=== PATIENT | male | born 1970 | race Caucasian/White ===

== ENCOUNTER → 2021-08-10 14:41 | Outpatient (CLI) | payer BC, SELFPAY ==
--- NOTE | ~2021-08-10 | XR_ITS ---
EXAM: XR lumbar spine 2-3V HISTORY: M54.9 - Dorsalgia, unspecified . COMPARISON: None available. FINDINGS: 5 nonrib-bearing lumbar-type vertebral bodies. Pedicles intact. 2 mm retrolisthesis of L3 on L4, with mild disc space narrowing and bridging anterior osteophyte formation. Vertebral body heig hts preserved. Mild disc space narrowing at L5-S1. Lower lumbar facet sclerosis. Surgical suture mat erial projects over the lower abdomen IMPRESSION: Minimal, grade 1 retrolisthesis of L3 on L4. Mild degenerative disc disease at L3-4 and L 5-S1. Lower lumbar facet arthropathy. Reviewed, dictated and finalized at location K. IMPRESSION: Minimal, grade 1 retrolisthesis of L3 on L4. Mild degenerative disc disease at L3-4 and L5-S1. Lower lumbar facet arthropathy.
== END ==
PROVIDERS: PCP Internal Medicine; Visit Provider Internal Medicine
DX: M47.817 Spondylosis without myelopathy or radiculopathy, lumbosacral region (principal)
CPT/HCPCS: 72100

== ENCOUNTER 2021-08-22 08:28 | Outpatient (CLI) | payer BC, SELFPAY ==
--- NOTE | ~2021-08-22 | MR_ITS ---
EXAMINATION: MR lumbar spine wo con DATE: 08/22/2021 09:15 INDICATION: Dorsalgia, unspecified. TECHNIQUE: Magnetic resonance imaging (MRI) of the lumbar spine was performed without intravenous con trast. Sequences included sagittal T2-weighted FSE, sagittal T2-weighted FS FSE, sagittal T1-weighted FSE, and axial T2-weighted FSE. COMPARISON: Lumbar spine radiographs 08/10/2021 FINDINGS: There is 5 degrees levocurvature of lumbar spine. There is 3 mm retrolisthesis of L3 on L4. Vertebral body heights are normal. There is mildly decreased disc height at L3-L4 and L5-S1. The dis kya spinal cord signal intensity is normal. The conus medullaris is at T12-L1. The following disc lev els are specifically discussed: L1-L2: The disc does not extend beyond the endplate margin. There is mild bilateral facet joint osteo arthritis. There is no neural foraminal stenosis. There is no central canal stenosis. L2-L3: The disc does not extend beyond the endplate margin. There is moderate bilateral facet joint o steoarthritis. There is no neural foraminal stenosis. There is no central canal stenosis. L3-L4: The disc is bulging. There is mild bilateral facet joint osteoarthritis. There is mild bilater al neural foraminal stenosis. There is mild central canal stenosis. L4-L5: The disc is bulging. There is mild bilateral facet joint osteoarthritis. There is moderate rig ht and mild left neural foraminal stenosis. There is no central canal stenosis. L5-S1: The disc is bulging and has an annular fissure. There is severe right and mild left facet join t osteoarthritis. There is mild bilateral neural foraminal stenosis. There is mild central canal sten osis. IMPRESSION: 1. Mild lumbar spondylosis. Reviewed, dictated and finalized at location A. IMPRESSION: 1. Mild lumbar spondylosis.
== END 2021-08-22 08:29 | disposition home or self-care (01) ==
PROVIDERS: PCP Internal Medicine; Visit Provider Internal Medicine
DX: M54.9 Dorsalgia, unspecified (principal); M47.816 Spondylosis without myelopathy or radiculopathy, lumbar region
CPT/HCPCS: 72148

== ENCOUNTER 2022-06-05 19:33 | Emergency (ER) | payer BC, SELFPAY ==
[2022-06-05] VITALS (16 sets, daily range): BP systolic 137–156; BP diastolic 84–98; PULSE 85–101; RESP 10–23; TEMP 36.8; O2SAT 90–99
--- NOTE | ~2022-06-05 | CT_ITS ---
Noncontrast CT scan of the cervical spine Technique: Multiple contiguous axial [address] images of the cervical spine were obtained and rec onstructed in 2D sagittal and coronal planes on the acquisition scanner. Dose reduction technique was used on this scan by utilizing automated exposure control, adjustment of the mA and/or kV according to patient size. Clinical History: Pain Findings: No fractures or dislocations. Mild disc osteophyte complexes are present at C5-C6 and C6-C 7. The intervertebral disc spaces are preserved. No prevertebral soft tissue swelling. Impression: No fracture or subluxation of the cervical spine. Reviewed, dictated and finalized at location M. NG FELLER Impression: No fracture or subluxation of the cervical spine.
--- NOTE | ~2022-06-05 | CT_ITS ---
Non-contrast Head CT History: Head trauma Technique: Axial non-contrast imaging of the brain was performed. Dose reduction technique was used on this scan by utilizing automated exposure control and iterative reconstruction technique. The dose -length product (DLP) was 605.33 mGy-cm. Findings: There is no evidence of intracranial hemorrhage, mass lesion, or acute infarct. Brain par enchyma appears normal. The ventricles and subarachnoid spaces are normal in size. The calvarium ap pears normal. The visualized paranasal sinuses and mastoid air cells are clear. There is soft tissue swelling and/or laceration at the left parietal scalp. Impression: No intracranial abnormality seen. Soft tissue swelling and/or laceration at the left parietal scalp. Reviewed, dictated and finalized at [facility]. LY ASSISTANT Impression: No intracranial abnormality seen. Soft tissue swelling and/or laceration at the left parietal scalp.
[2022-06-05] MEDS: TETANUS,DIPHTHERIA,AC PERTUSSIS ADULT (0.5 ML) BOOSTRIX IM (20:13)
--- NOTE | 2022-06-05 20:35 | ED.GENADULT ---
HPI - General Adult General Chief complaint: Fall Stated complaint: fall, head trauma Time Seen by Provider: 06/05/22 19:38 History of Present Illness HPI narrative: Patient 52-year-old gentleman who presents the emergency department with chief complaint of head injury. Patient reports that he was drinking with some family and friends today and had several IPAs and then several mixed drinks afterwards the patient got home laid down and then got up to go to the bathroom and fell and struck his head. Patient states he does not necessarily remember the situation but does report that he has a little bit of a headache now. Patient reports that he is unsure of his last tetanus shot Related Data Home Medications Medication Instructions Recorded Confirmed fexofenadine-pseudoephedrine ER 1 tablet PO DAILY 04/12/19 09/16/21 180 mg-240 mg tablet,ext.release 24 hr (Paola-D 24 Hour) Allergies Allergy/AdvReac Type Severity Reaction Status Date / Time No Known Allergies Allergy Verified 09/16/21 14:17 Review of Systems Review of Systems: A 10 system review of systems was completed on the patient and is negative except for what is stated in the HPI. Nursing and ancillary documentation was reviewed. [facility] Past Medical History Medical History (Updated 06/05/22 @ 22:35 by Jordi Duran MD) History of intestine removal Family History Family History Father Patient's father is in good health Sibling Patient's brother is in good health Mother Patient's mother is Social History Social History Smoking status: Former smoker Second hand tobacco smoke exposure: No Alcohol intake: current Exam Narrative: GENERAL: Well-appearing, well-nourished, and in no acute distress. HEAD: Normocephalic, there is a wound present on the left scalp. EYES: PERRLA and EOMI. ENT: Nares clear, no rhinorrhea or epistaxis. Mucous membranes moist. NECK: Supple. CHEST: Clear to auscultation. No respiratory distress. HEART: Regular rate and rhythm. No murmur heard. Normal peripheral pulses. ABDOMEN: Soft, nontender, nondistended, normal active bowel sounds. EXTREMITIES: Normal range of motion. No edema. SKIN: Warm, dry, no rash. NEURO: No focal deficits. Alert and oriented x3. PSYCH: Normal mood and affect. Course Vital Signs Vital signs: Vital Signs Temperature 36.8 C 06/05/22 19:36 Pulse Rate 91 06/05/22 19:36 Respiratory Rate 16 06/05/22 19:36 Blood Pressure 156/87 H 06/05/22 19:36 Pulse Oximetry 99 06/05/22 19:36 Oxygen Delivery Room Air 06/05/22 19:36 Temperature 36.8 C 06/05/22 19:36 Pulse Rate 95 06/05/22 21:16 Respiratory Rate 13 06/05/22 21:16 Blood Pressure 140/84 06/05/22 21:15 Pulse Oximetry 96 06/05/22 21:16 Oxygen Delivery Room Air 06/05/22 19:36 Procedures Laceration Laceration 1: Date: 06/05/22 Time: 22:32 Site: scalp Side (If applicable): left Size (cm): 3 Description: linear Depth: simple, single layer Local Anesthetic: none Pre-repair: wound explored, irrigated and irrigated extensively ====== Skin Level ====== Skin layer closed with: pily Size (cm): other (skin pily) Number of sutures: 4 Technique: other (skin pily) ====== Subcutaneous Layer ====== ====== Muscle Layer ====== ====== Tendon Layer ====== Medical Decision Making MDM Narrative Medical decision making narrative: Differential diagnosis includes skull fracture, subarachnoid, subdural, cervical spine fracture, alcohol abuse CT head and CT C-spine were obtained due to the patient being unable to remember the events and alcohol at the present in the patient's system Patient's wound was closed. Patient's tetanus st
== END 2022-06-05 22:58 | disposition home or self-care (01) ==
PROVIDERS: Emergency Provider Emergency Medicine; PCP Internal Medicine
DX: S01.01XA Laceration without foreign body of scalp, initial encounter (principal); W01.0XXA Fall on same level from slipping, tripping and stumbling without subsequent striking against object, initial encounter; Z23 Encounter for immunization
CPT/HCPCS: 12032; 70450; 72125; 90471; 90715; 99284

== ENCOUNTER 2023-08-12 09:47 | Outpatient (CLI) | payer BC, SELFPAY ==
--- NOTE | ~2023-08-12 | XR_ITS ---
Left elbow Technique: AP and lateral views were obtained. Clinical History: Pain Findings: No acute fracture or dislocation is seen. Osseous alignment is anatomic. Joint spaces are p reserved. There is no displacement of the fat pads, and soft tissues are unremarkable. Impression: Unremarkable radiographs. Reviewed, dictated and finalized at location . Impression: Unremarkable radiographs.
== END 2023-08-12 09:48 | disposition home or self-care (01) ==
PROVIDERS: PCP Internal Medicine; Visit Provider Physician Assistant
DX: M25.522 Pain in left elbow (principal)
CPT/HCPCS: 73070

== ENCOUNTER 2024-01-20 07:01 | Outpatient (CLI) | payer BC, SELFPAY ==
--- NOTE | ~2024-01-20 | MR_ITS ---
EXAMINATION: MR lumbar spine wo con DATE: 01/20/2024 07:33 INDICATION: Acute lumbar radiculopathy. TECHNIQUE: Magnetic resonance imaging (MRI) of the lumbar spine was performed without intravenous con trast. Sequences included sagittal T2-weighted FSE, sagittal T2-weighted FS FSE, sagittal T1-weighted FSE, and axial T2-weighted FSE. COMPARISON: Lumbar spine MRI 08/22/2021 FINDINGS: There is 3 degrees levocurvature of lumbar spine. Vertebral body heights are normal. There is mildly decreased disc height at L3-L4 and L5-S1. The distal spinal cord signal intensity is normal . The conus medullaris is at T12. The following disc levels are specifically discussed: L1-L2: The disc does not extend beyond the endplate margin. There is mild bilateral facet joint osteo arthritis. There is no neural foraminal stenosis. There is no central canal stenosis. L2-L3: The disc does not extend beyond the endplate margin. There is mild bilateral facet joint osteo arthritis. There is no neural foraminal stenosis. There is no central canal stenosis. L3-L4: The disc is bulging. There is mild bilateral facet joint osteoarthritis. There is mild bilater al neural foraminal stenosis. There is no central canal stenosis. L4-L5: The disc is bulging with superimposed right foraminal zone extrusion. There is mild bilateral facet joint osteoarthritis. There is moderate right and mild left neural foraminal stenosis. There is mild central canal stenosis. L5-S1: The disc is bulging with superimposed right central extrusion. There is severe right and moder ate left facet joint osteoarthritis. There is mild bilateral neural foraminal stenosis. There is mild central canal stenosis. There is moderate stenosis of right lateral recess. IMPRESSION: 1. Moderate lumbar spondylosis, worsened from 08/22/2021. Reviewed, dictated and finalized at location A.
== END 2024-01-20 07:02 | disposition home or self-care (01) ==
PROVIDERS: PCP Physician Assistant; Visit Provider Physician Assistant
DX: M47.816 Spondylosis without myelopathy or radiculopathy, lumbar region (principal)
CPT/HCPCS: 72148

== ENCOUNTER 2024-04-17 13:03 | Emergency (ER) | payer BC, SELFPAY ==
[2024-04-17 13:20] VITALS: BP 136/89; PULSE 73; RESP 16; TEMP 36.5; O2SAT 99
--- NOTE | 2024-04-17 13:27 | ED.EAR ---
HPI - Ear Problem General Chief complaint: Ear Stated complaint: EAR CLOGGED Source: patient Mode of arrival: ambulatory Limitations: no limitations History of Present Illness HPI Narrative: 54 y/o male presented for c/o left ear is clogged for several days. Endorses drainage from the ear, starting to have pain, and occasionally feeling off balance. Denies tinnitus, dizziness, n/v/d/f/c. Complaint: ear pain Related Data Allergies Allergy/AdvReac Type Severity Reaction Status Date / Time No Known Allergies Allergy Verified 03/16/24 11:12 Review of Systems Review of Systems: CONSTITUTIONAL: Denies malaise, chills, or fever. EYES: Denies visual changes, redness, or discharge. ENT: Denies rhinorrhea, congestion, sinus pain, and sore throat. Reports ear clogged CARDIOVASCULAR: Denies chest pain, palpitations, or edema. RESPIRATORY: Denies cough or dyspnea. GASTROINTESTINAL: Denies nausea, vomiting, diarrhea SKIN: Denies rash NEUROLOGIC: Denies headache. All systems reviewed & are unremarkable except as noted in HPI and below PMFSH Past Medical History Medical History Lumbar disc herniation History of intestine removal Family History Family History Father Patient's father is in good health Sibling Patient's brother is in good health Mother Patient's mother is Social History Social History Smoking status: Former smoker Second hand tobacco smoke exposure: No Alcohol intake: current Substance use: unknown Lack of Transportation: No Lack of Food: Never True Current Housing: I Have Housing Concerned About Future Housing: No Difficulty Paying Gas/Electric Bills: No Difficulty Paying for Meds: No Currently Unemployed: No Education: Decline to Answer Difficulty w/ Childcare or Family Care: No Comments At time of signature, agree with nursing past medical, surgical, social and family history. There is no relevant family history pertinent to the presenting complaint Exam Narrative: GENERAL: Well-appearing EYES: PERRLA, conjunctivae clear ENT: Nares clear. Mucous membranes moist. Right TM pearly shepard with dull light reflex;Left canal swelling with purulent drainage, unable to fully visualize TM. no tragal tenderness. Oropharynx not erythematous without lesions. Tonsils not enlarged and without exudate, no drooling, no hoarseness, no trismus, uvula midline. NECK: Supple. No lymphadenopathy CHEST: Clear to auscultation, breath sounds equal. HEART: Regular rate and rhythm. SKIN: Warm, dry, no rash. NEURO: Alert and oriented x3. PSYCH: Normal mood and affect Course Course Emergency Course: Patient is aware of diagnosis, understands and agrees to treatment plan. Anticipatory guidance given. Patient agrees to follow-up as directed and is aware of reasons to seek care at the emergency department. Portions of this record may have been created with voice recognition software Level of Care: Express Care Visit Vital Signs Vital signs: Vital Signs Temperature 97.7 F 04/17/24 13:20 Pulse Rate 73 04/17/24 13:20 Respiratory Rate 16 04/17/24 13:20 Blood Pressure 136/89 04/17/24 13:20 Pulse Oximetry 99 04/17/24 13:20 Temperature 97.7 F 04/17/24 13:20 Pulse Rate 73 04/17/24 13:20 Respiratory Rate 16 04/17/24 13:20 Blood Pressure 136/89 04/17/24 13:20 Pulse Oximetry 99 04/17/24 13:20 Reviewed Medical Decision Making MDM Narrative Medical decision making narrative: Discussed physical exam findings c/w OE. Advised supportive measures and signs/symptoms to go to the ER. Patient is appropriate for outpatient treatment and follow-up. Differential Diagnosis Differential Diagnosis: Coronavirus, strep pharyngitis, allergic rhinitis, upper respiratory tract infection, sinusitis, rhinosinusitis, nasopharyngitis, viral pharyngitis, otitis media, otitis externa, eustachian tube dysfunction, foreign body, cerumen impaction. Vital Signs Vital Signs: Vital Signs Temperature 97.7 F 04/17/24 13:20 Pulse Rate 73 04/17/24 13:20 Respiratory Rate 16 04/17/24 13:20 Blood Pressure 136/89 04/17/24 13:20 Pulse Oximetry 99 04/17/24 13:20 Temperature 97.7 F 04/17/24 13:20 Pulse Rate 73 04/17/24 13:20 Respiratory Rate 16 04/17/24 13:20 Blood Pressure 136/89 04/17/24 13:20 Pulse Oximetry 99 04/17/24 13:20 Discharge Plan Discharge Clinical Impression: Otitis externa Patient Disposition: Home, Self-Care Condition: Stable Instructions: Antibiotic Form, Swimmer's Ear (ED), Ear Infection (ED) Additional Instructions: Swimmer's ear is an infection in the outer ear canal, which runs from your eardrum to the outside of your head. It's often caused by water that remains in your ear, creating a moist environment that encourages the growth of bacteria. Take antibiotic drops as directed. Tylenol and ibuprofen every 8 hours as needed to reduce fever, pain Avoid water or anything into the ear for one week Follow up with your personal physician for further evaluation and treatment within 3-5days. If your symptoms persist, change or worsen significantly, go to the emergency department for further evaluation. Patient Language: Nepali Prescriptions: New amoxicillin-pot clavulanate 875-125 mg tablet 1 tablet PO Q12H 7 Days Qty: 14 0RF ciprofloxacin-dexamethasone 0.3-0.1 % drops,suspension 4 drp LEFT EAR Q12H 7 Days Qty: 7.5 0RF Follow-up/Referrals: UNKNOWN,DOCTOR [Primary Care Provider] - Time of Disposition: 13:35
== END 2024-04-17 13:43 | disposition home or self-care (01) ==
PROVIDERS: Emergency Provider Nurse Practitioner Family
DX: H60.92 Unspecified otitis externa, left ear (principal); Z87.891 Personal history of nicotine dependence
CPT/HCPCS: 99213; G0463

== ENCOUNTER 2024-05-07 08:35 | Outpatient (CLI) | payer BC, SELFPAY ==
--- OUTSIDE RECORDS SUMMARY | 2024-05-07 08:54 | XMS_ITS | Encounter Summary ---
Author Organization [facility] Address 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
--- OUTSIDE RECORDS SUMMARY | 2024-05-07 08:54 | XMS_ITS | Clinical Summary ---
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 Gender Identity Not on file Sexual Orientation Not on file Plan of Treatment Health Maintenance Due Date Last Done Comments DTAP/TDAP/TD VACCINES (1 - Tdap) 02/10/1988 HEPATITIS B VACCINES (1 of 3 - 19+ 3-dose series) 02/10/1988 COLORECTAL SCREENING 2014 Colorectal Cancer Screening 2014 FIT-DNA Q 3 years 2014 FIT/FOBT Q 1 year 2014 Flex Sig/CT Colonography Q 5 years 2014 ZOSTER VACCINE (1 of 2) 2019 INFLUENZA VACCINE (#1) 2023 PNEUMOCOCCAL VACCINE 0-64 YEARS Aged Out No longer eligible based on patient's age to complete this topic Care Teams Cad Designer Relationship Specialty Start Date End Date Rhys Flores DO * PCP - General 12/16/03
--- OUTSIDE RECORDS SUMMARY | 2024-05-07 08:54 | XMS_ITS | Continuity of Care Document ---
Author Organization [facility] Address [address] [place] [address] Phone Care Team Providers Care Bill Of Materials Clerk Name Role Phone [facility] Unavailable Unavail able Procedures Procedure Date Vision Svcs Frames Purchases SV Poly Carb Sph [place] To +/- 4 009 Tax - Medical Eye Exam, New Patient Refraction Advance Directives Directive Yes / No Effective Date File Name No Information Encounters Encounter Description Practice Location Reason(s) For Visit Diagnoses Date Provider Providers Copied on Encounter Formerly [facility], [address] [place] [address] [address], [place], [place], [id number], [place] tel:[phone] [facility] No Information [address] [facility]. [address] [facility], [address], [place], [place], [id number], [place]. tel:[phone] Referring Provider: Tiago roque, [address] [place] [address] [address], [place], [address]. tel:[phone] [facility], [address] [place] [address] [address], [place], [place], [id number], [place] tel:[phone] [facility] No Information [address]. [address] [place] [address], [place], [address], [place]. tel:[phone] Family History Family Member Type Diagnosis Age At Onset No Information Payers Payer name Insurance type Covered green party ID Authoriza tion(s) No Information Social History Type Description Quantity Date Captured Comments Sex Male Smoking Status No Information Chief Complaint And Reason For Visit No Information Reason For Referral Reason For Referral No Information History Of Present Illness Encounter Date Complaint History Of Prese nt Illness No Information Functional Status Date Functional Assessmen t No Information Instructions Date Instruction Additional Infor mation No Information Assessments Type Assessment Date No Information Patient Care Teams Name Effective Dates (start - stop) Status Members No Information
--- OUTSIDE RECORDS SUMMARY | 2024-05-07 08:54 | XMS_ITS | Encounter Summary ---
Author Organization [facility] Address [address] [place] [address] Care Team Providers Care Computer Instructor Name Role Phone Rhys Flores DO Primary Care Provider [phone] Encounter Details Date Type Department Care Team (Late st Contact Info) Description 10/09/[address] 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
--- OUTSIDE RECORDS SUMMARY | 2024-05-07 08:54 | XMS_ITS | Encounter Summary ---
Author Organization [facility] Address [address] [place] [address] Care Team Providers Care Industry Consultant Name Role Phone Rhys Flores DO Primary Care Provider [phone] Encounter Details Date Type Department Care Team (Late st Contact Info) Description 11/14/[address] 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
--- OUTSIDE RECORDS SUMMARY | 2024-05-07 08:54 | XMS_ITS | Encounter Summary ---
Author Organization [facility] Address [address] [facility] [place] [address] Care Team Providers Care Return Clerk Name Role Phone Unavailable Primary Care Provider Unavailabl e Encounter Details Date Type Department Care Team (Late st Contact Info) Description 07/30/[address] [facility] DermPath Lab [address] [facility], [place] [id number] Ny Kumar DO [address] [facility] [address] [place] [address] Social History Tobacco Use Types Packs/Day Years Used Date Smoking Tobacco: Never Assessed Sex and Gender Information Value Date Recorded Sex Assigned at Not on file Gender Identity Not on file Sexual Orientation Not on file documented as of this encounter Plan of Treatment Not on file documented as of this encounter Procedures Procedure Name Priority Date/Time Associated Diagnosis Comments DERMATOPATHOLOGY Routine 07/30/2019 12:0 0 AM CDT documented in this encounter Results * DERMATOPATHOLOGY (07/30/2019 12:00 AM CDT) Case Report Dermatopathology Report Case: [id number] Authorizing Provider: Ny Kumar DO Collected: 07/30/2019 12:00 AM Ordering Location: [facility] DermPath Lab Received: 07/30/2019 10:39 AM Pathologist: Jessi Wilson MD Specimen: Skin, mid upper back 0 4:23 PM CDT DERMATOPATHOLOGY LABORATORY Final Diagnosis Specimen A. SKIN, mid upper back: ACTINIC KERATOSIS, PIGMENTED (L57.0) (see microscopic description) 0 4:23 PM CDT DERMATOPATHOLOGY LABORATORY Clinical History Lentigo R/O atypia, irregular border, irregular color. 0 4:23 PM CDT DERMATOPATHOLOGY LABORATORY Gross Description Specimen A: Received is one formalin filled container labeled with the patient's name and designated mid upper back. The specimen consists of a shave measuring [id number]. Jar 0. 0 4:23 PM CDT DERMATOPATHOLOGY LABORATORY Microscopic Description Specimen A. SKIN, mid upper back: There is alternating orthokeratosis and parakeratosis. Along the undersurface of the epidermis, there are buds of atypical keratinocytes in a disorderly arrangement. There is prominent pigmentation in some of the keratinocytes, and an immunostain for SOX-10 highlights a slightly increased number of melanocytes within the lesion. 0 4:23 PM CDT DERMATOPATHOLOGY LABORATORY Disclaimer An external and internal positive and negative controls are appropriate for the histochemical, immunohistochemical and immunofluorescence stain(s) in this case (if any), except where stated explicitly. The performance characteristics of the stain(s) cited in this report were developed and its performance characteristic determined by the Dermatopathology Laboratory at [facility], directed by Dr. Samy Coy. These tests need not be, and therefore are not, approved by the [place] Food and Drug Administration. The tests are used for clinical purposes. Billing Codes Specimen Charges Stain Charges 25744 1 06344 1 0 4:23 PM CDT DERMATOPATHOLOGY LABORATORY Embedded Images 0 4:23 PM CDT DERMATOPATHOLOGY LABORATORY Pathology/Cytolog y TISSUE SPECIMEN FROM SKIN / Unknown 07/30/2019 07/30/2019 10:39 AM CDT Ny Kumar DO LAB - PATHOLOGY/C YTOLOGY ORDERABLES DERMATOPATHOLOGY LABORATORY [facility] - Department of Dermatology [address] [place] [address], 5th [place] [address], [facility] [phone] documented in this encounter Visit Diagnoses Not on filedocumented in this encounter
--- OUTSIDE RECORDS SUMMARY | 2024-05-07 08:54 | XMS_ITS | Encounter Summary ---
Author Organization [facility] Address 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
--- OUTSIDE RECORDS SUMMARY | 2024-05-07 08:54 | XMS_ITS | Clinical Summary ---
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 Gender Identity Not on file Sexual Orientation Not on file Plan of Treatment Health Maintenance Due Date Last Done Comments Colorectal Cancer Screening Colonoscopy (10 Years) 1970 Annual Physical 02/10/1972 Hepatitis C 1987 DTaP, Tdap and Td Vaccines ( 1 - Tdap) 02/10/1988 Hepatitis B Vaccines (1 of 3 - 19+ 3-dose series) 02/10/1988 Zoster Vaccines (1 of 2) 2019 COVID-19 Vaccine (2023-2 5 season) 2023 Influenza Adult (#1) 2023 Meningococcal B Vaccine Aged Out No l onger eligible based on patient's age to complete this topic Meningococcal Vaccine Aged Out No madie dennise eligible based on patient's age to complete this topic Pneumococcal Vaccine: Pediat rics (0 to 5 Years) and At-Risk Patients (6 to 64 Years) Aged Out No longer eligible b ased on patient's age to complete this topic RSV Immunizations Under 20 Months Aged Out No longer eligible based on patient's age to complete this topic
--- OUTSIDE RECORDS SUMMARY | 2024-05-07 08:54 | XMS_ITS | Referral Summary ---
Author Organization [facility] Address [address] [place] [address] Care Team Providers Care Developer Designer Name Role Phone Unavailable Primary Care Provider Unavailabl e Source Comments [facility],non-owned Affiliates and Associated Physician Practices is amultiple site organization consisting of ambulatory clinics and hospital sitesin [place], [place], [place] and [place]. This disclosure is being madepursuant to the Care Everywhere program and may not contain all information available regarding this patient. Last updated 17.[facility] Authorly Social History Tobacco Use Types Packs/Day Years Used Date Smoking Tobacco: Never Assessed Sex and Gender Information Value Date Recorded Sex Assigned at Not on file Gender Identity Not on file Sexual Orientation Not on file Plan of Treatment Not on file
--- OUTSIDE RECORDS SUMMARY | 2024-05-07 08:54 | XMS_ITS | Clinical Summary ---
Author Organization [facility] Address [address] [place] [address] Care Team Providers Care Preschool Assistant Teacher Name Role Phone Unavailable Primary Care Provider Unavailabl e Source Comments [facility],non-owned Affiliates and Associated Physician Practices is amultiple site organization consisting of ambulatory clinics and hospital sitesin [place], [place], [place] and [place]. This disclosure is being madepursuant to the Care Everywhere program and may not contain all information available regarding this patient. Last updated 17.[facility] Social History Tobacco Use Types Packs/Day Years Used Date Smoking Tobacco: Never Assessed Sex and Gender Information Value Date Recorded Sex Assigned at Not on file Gender Identity Not on file Sexual Orientation Not on file Plan of Treatment Health Maintenance Due Date Last Done Comments COLOGUARD (AGES 45-75) - COL ON CA SCREENING 1970 COLON MONITORING 1969 COLONOSCOPY - COLON CA SCREENING 1969 CT COLONOGRAPHY - COLON CA SCREENING 1970 Colorectal Cancer Screening 1970 FIT - COLON CA SCREENING 1969 FLEX SIG - COLON CA SCREENING 1970 LIPID TESTING 1970 HIV SCREENING 02/10/1984 HEPATITIS C SCREENING 02/05/1987 DTAP/TDAP/TD VACCINES (1 - Tdap) 02/10/1988 HEPATITIS B VACCINE (1 of 3 - 19+ 3-dose series) 02/10/1988 PNEUMOCOCCAL VACCINE 50+ (1 of 1 - PCV) 2019 ZOSTER VACCINE (1 of 2) 2019 COVID-19 VACCINE (2023-2 5 season) 2023 INFLUENZA VACCINE (#1) 2023 DEPRESSION SCREENING 03/28/2024 HIB VACCINE Aged Out No longer eligi ble based on patient's age to complete this topic HPV VACCINE Aged Out No longer eligi ble based on patient's age to complete this topic MENINGOCOCCAL (Group B) VACCINE Aged Out No longer eligible based on patient's age to complete this topic MENINGOCOCCAL VACCINE Aged Out No madie dennise eligible based on patient's age to complete this topic PNEUMOCOCCAL VACCINE Aged Out No long er eligible based on patient's age to complete this topic
--- OUTSIDE RECORDS SUMMARY | 2024-05-07 08:54 | XMS_ITS | Encounter Summary ---
Author Organization [facility] Address 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
--- OUTSIDE RECORDS SUMMARY | 2024-05-07 08:54 | XMS_ITS | Encounter Summary ---
Author Organization [facility] Address 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
--- OUTSIDE RECORDS SUMMARY | 2024-05-07 08:54 | XMS_ITS | Encounter Summary ---
Author Organization [facility] Address 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
--- OUTSIDE RECORDS SUMMARY | 2024-05-07 08:54 | XMS_ITS | Patient Health Summary ---
Author Organization [facility] Address [address] [place] [address] Care Team Providers Care Housing Director Name Role Phone Unavailable Primary Care Provider Unavailabl e Note from [facility],non-owned Affiliates and Associated Physician Practices is amultiple site organization consisting of ambulatory clinics and hospital sitesin [place], [place], [place] and [place]. This disclosure is being madepursuant to the Care Everywhere program and may not contain all information available regarding this patient. Last updated 17.[facility] Social History Tobacco Use Types Packs/Day Years Used Date Smoking Tobacco: Never Assessed Sex and Gender Information Value Date Recorded Sex Assigned at Not on file Gender Identity Not on file Sexual Orientation Not on file Procedures * DERMATOPATHOLOGY(Performed 07/30/2019) Results * DERMATOPATHOLOGY (07/30/2019 12:00 AM CDT) Case Report Dermatopathology Report Case: [id number] Authorizing Provider: Ny Kumar DO Collected: 07/30/2019 12:00 AM Ordering Location: [facility] DermPath Lab Received: 07/30/2019 10:39 AM [...] The specimen consists of a shave measuring [id number]. Jar 0. 0 4:23 PM CDT DERMATOPATHOLOGY [...] characteristic determined by the Dermatopathology Laboratory at [facility], directed by Dr. Samy Coy. These tests need not be, and therefore are not, approved by the [place] Food and Drug Administration. The tests are used for clinical purposes. Billing Codes Specimen Charges Stain Charges 36580 1 82649 1 0 4:23 PM CDT DERMATOPATHOLOGY LABORATORY Embedded Images 0 4:23 PM CDT DERMATOPATHOLOGY LABORATORY Pathology/Cytolog y TISSUE SPECIMEN FROM SKIN / Unknown 07/30/2019 07/30/2019 10:39 AM CDT Ny Kumar DO LAB - PATHOLOGY/C YTOLOGY ORDERABLES DERMATOPATHOLOGY LABORATORY [facility] - Department of Dermatology [address] [place] [address], 5th Floor Lab [address] [place], [place] [address] [place] [address]
--- NOTE | 2024-05-07 09:08 | ECG_ITS ---
Test Date: 2024-05-07 09:31:34 Measurements Intervals [place] Rate: 64 P: 63 MA: 227 QRS: 68 QRSD: 93 T: 51 QT: 370 QTc: 383 Interpretive Statements SINUS RHYTHM WITH FIRST DEGREE AV BLOCK CONSIDER INFERIOR INFARCT, AGE INDETERMINATE BASELINE ARTIFACT- I, II, III, AVR, AVL, AVF, V1-V6 ABNORMAL ECG No previous ECG available for comparison Electronically Signed On 05-07-2024 09:47:19 [employer]PERVISOR [employer] by Jaime Yo D.O.
[2024-05-07 09:43] LABS: Hematocrit 42.2 % (42.0-52.0); Mean Corpuscular HGB Conc 33.2 g/dl (32-36); Mean Corpuscular Hemoglobin 29.3 pg (26-34); Mean Corpuscular Volume 88.3 fl (80-100); Platelet Count Result 214 k/mm3 (150-375); Red Blood Count 4.78 M/mm3 (4.6-6.20); Red Cell Distribution Width 13.1 % (11.5-14.5)
[2024-05-07 09:54] LABS: Add Urine Microscopic? NO; Anion Gap 11 mmol/L (4-12); Appearance Urine Clear (Clear); Bilirubin Urine Negative (Negative); Blood Urea Nitrogen 15 mg/dL (9-20); Blood Urine Negative (Negative); Calcium 9.6 mg/dL (8.4-10.2); Carbon Dioxide 29 mmol/L (22-30); Chloride 102 mmol/L (98-107); Color Urine Yellow (Yellow); Estimated Glomerular Filt Rate > 60; Glucose 122 mg/dL (65-110); Glucose Urine UA Negative (Negative); Ketones Urine Negative (Negative); Leukocyte Esterase Ur Negative LEU/UL (Negative); Nitrate Urine Negative (Negative); Potassium 4.4 mmol/L (3.4-5.0); Protein Urine Negative (Negative); Sodium 142 mmol/L (137-145); Specific Grav Ur 1.021 (1.001-1.035); Urobilinogen Urine 0.2 mg/dL (<2.0); pH Urine 6.5 (5.0-9.0)
[2024-05-07 10:04] LABS: INR 0.9; Prothrombin Time 12.3 Seconds (11.1-14.7)
== END 2024-05-07 08:36 | disposition home or self-care (01) ==
PROVIDERS: Visit Provider Neurological Surgery
DX: Z01.818 Encounter for other preprocedural examination (principal); M51.26 Other intervertebral disc displacement, lumbar region; E78.5 Hyperlipidemia, unspecified
CPT/HCPCS: 36415; 80048; 81003; 85027; 85610; 85730; 93005

== ENCOUNTER 2024-05-11 10:02 | Outpatient (CLI) | payer BC, SELFPAY ==
--- NOTE | 2024-05-11 10:04 | EST_ITS ---
Patient Info Name: Hari Palma Age: 54 years : 1970 Gender: Male Ht: 70 in Wt: 213 lbs BSA: 2.21 m2 Technical Quality: Good Exam Date: 05/11/2024 10:28 AM Exam Location: Echo Lab Patient Status: Outpatient Admit Date: 05/11/2024 Staff Ordering Physician: Jim Mortensen DO Youth Corrections Officer: Mari Miranda RDCS Attending Provider: DR. BAZAN Referring Physician: Festus MUÑOZ; Exam Type: CA stress echo Study Info Indications R94.31 - Abnormal electrocardiogram ECG EKG Treadmill exercise stress echocardiogram is performed. Summary 1. 1. Negative Neo exercise stress test for ischemic ST changes by ECG criteria. 2. 2. Good functional capacity, achieving 10 METs of workload. 3. 3. Hypertensive response to exercise. 4. 4. Appropriate HR response to exercise. 5. 5. Appropriate HR recovery at 1 minute post exercise. 6. 6. Negative stress echocardiogram for ischemia by wall motion analysis. 7. 7. Patient informed of the above results. Stress Echo Findings Left Ventricle Appropriate increase in LV endocardial thickening with systole. Appropriate augmentation of contractility with systole. No wall motion abnormality. Left Ventricle Normal LV systolic function, no wall motion abnormality. Protocol: Neo Stress ECG Details Stage: REST Duration (min): 1 min : 0 sec Speed (mph): 0.0 Grade (%): 0 HR (bpm): 61 SBP (mmHg): 135 DBP (mmHg): 80 METS: --- Stage: REST Duration (min): 16 min : 7 sec Speed (mph): 0.0 Grade (%): 0 HR (bpm): 77 SBP (mmHg): 135 DBP (mmHg): 80 METS: --- Stage: STAGE 1 Duration (min): 1 min : 0 sec Speed (mph): 1.7 Grade (%): 10 HR (bpm): 98 SBP (mmHg): 135 DBP (mmHg): 80 METS: --- Stage: STAGE 1 Duration (min): 2 min : 0 sec Speed (mph): 1.7 Grade (%): 10 HR (bpm): 110 SBP (mmHg): 135 DBP (mmHg): 80 METS: --- Stage: STAGE 1 Duration (min): 3 min : 0 sec Speed (mph): 1.7 Grade (%): 10 HR (bpm): 111 SBP (mmHg): 150 DBP (mmHg): 87 METS: --- Stage: STAGE 2 Duration (min): 1 min : 0 sec Speed (mph): 2.5 Grade (%): 12 HR (bpm): 122 SBP (mmHg): 150 DBP (mmHg): 87 METS: --- Stage: STAGE 2 Duration (min): 2 min : 0 sec Speed (mph): 2.5 Grade (%): 12 HR (bpm): 124 SBP (mmHg): 145 DBP (mmHg): 84 METS: --- Stage: STAGE 2 Duration (min): 3 min : 0 sec Speed (mph): 2.5 Grade (%): 12 HR (bpm): 135 SBP (mmHg): 145 DBP (mmHg): 84 METS: --- Stage: STAGE 3 Duration (min): 1 min : 0 sec Speed (mph): 3.4 Grade (%): 14 HR (bpm): 150 SBP (mmHg): 140 DBP (mmHg): 84 METS: --- Stage: STAGE 3 Duration (min): 2 min : 0 sec Speed (mph): 3.4 Grade (%): 14 HR (bpm): 159 SBP (mmHg): 140 DBP (mmHg): 84 METS: --- Stage: STAGE 3 Duration (min): 2 min : 2 sec Speed (mph): 0.0 Grade (%): 0 HR (bpm): 159 SBP (mmHg): 140 DBP (mmHg): 84 METS: --- Stage: RECOVERY Duration (min): 0 min : 57 sec Speed (mph): 0.0 Grade (%): 0 HR (bpm): 127 SBP (mmHg): 140 DBP (mmHg): 84 METS: --- Stage: RECOVERY Duration (min): 1 min : 57 sec Speed (mph): 0.0 Grade (%): 0 HR (bpm): 105 SBP (mmHg): 213 DBP (mmHg): 66 METS: --- Stage: RECOVERY Duration (min): 2 min : 57 sec Speed (mph): 0.0 Grade (%): 0 HR (bpm): 92 SBP (mmHg): 187 DBP (mmHg): 70 METS: --- Stage: RECOVERY Duration (min): 3 min : 3 sec Speed (mph): 0.0 Grade (%): 0 HR (bpm): 93 SBP (mmHg): 187 DBP (mmHg): 70 METS: --- Rest HR: 77 bpm Peak HR: 159 bpm Rest Sys BP: 135 mmHg Peak Sys BP: 213 mmHg Max Pred HR: 165 bpm % Max Pred HR: 96 % Target HR: 140 bpm Max RPP: 33,867 bpm*mmHg Jacob Score: 3 BP Response: Patient exhibited a hypertensive response with stress Termination Reason: Reached target heart rate or workload Cardiac Symptoms: Shortness of breath Max ST Seg Deviation: 1.10 mm Total Time: 8 min : 2 sec Rest Pan BP: 80 mmHg Peak Pan BP: 66 mmHg Angina Score: None Total METS: 10.3 Resting ECG Sinus rhythm. Stress ECG No ST changes. Arrhythmias None. Report Signatures Stress ECG Echo
--- OUTSIDE RECORDS SUMMARY | 2024-05-11 10:15 | XMS_ITS | Encounter Summary ---
Author Organization [facility] Address 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
--- OUTSIDE RECORDS SUMMARY | 2024-05-11 10:15 | XMS_ITS | Encounter Summary ---
Author Organization [facility] Address [address] [facility] [place] [address] Care Team Providers Care Optical Laboratory Technician Name Role Phone Unavailable Primary Care Provider Unavailabl e Encounter Details Date Type Department Care Team (Late st Contact Info) Description 07/30/2019 Lab Requisition [facility] [address] [facility], [place] [id number] Ny Kumar DO [address] [facility] [address] [place] [address] Social History Tobacco Use Types Packs/Day Years [...] AM CDT) Case Report Dermatopathology Report Case: [id number] Authorizing Provider: Ny Kumar DO Collected: 07/30/2019 12:00 AM Ordering Location: [facility] Lab Received: 07/30/2019 10:39 AM Pathologist: [...] The specimen consists of a shave measuring [id number]. Jar 0. 0 4:23 PM CDT DERMATOPATHOLOGY [...] characteristic determined by the Dermatopathology Laboratory at [facility], directed by Dr. Samy Coy. These tests need not be, and therefore are not, approved by the [place] Food and Drug Administration. The tests are used for clinical purposes. Billing Codes Specimen Charges Stain Charges 30984 1 05273 1 0 4:23 PM CDT DERMATOPATHOLOGY LABORATORY Embedded Images 0 4:23 PM CDT DERMATOPATHOLOGY LABORATORY Pathology/Cytolog y TISSUE SPECIMEN FROM SKIN / Unknown 07/30/2019 07/30/2019 10:39 AM CDT Ny Kumar DO LAB - PATHOLOGY/C YTOLOGY ORDERABLES DERMATOPATHOLOGY LABORATORY [facility] - Department of Dermatology [address] [place] [address], 5th [place] [address], [facility] [phone] documented in this encounter Visit Diagnoses Not on filedocumented in this encounter
--- OUTSIDE RECORDS SUMMARY | 2024-05-11 10:15 | XMS_ITS | Encounter Summary ---
Author Organization [facility] Address 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
--- OUTSIDE RECORDS SUMMARY | 2024-05-11 10:15 | XMS_ITS | Referral Summary ---
Author Organization [facility] Address [address] [place] [address] Care Team Providers Care Director Of Guidance Name Role Phone Unavailable Primary Care Provider Unavailabl e Source Comments [facility],non-owned Affiliates and Associated Physician Practices is amultiple site organization consisting of ambulatory clinics and hospital sitesin [place], [place], [place] and [place]. This disclosure is being madepursuant to the Care Everywhere program and may not contain all information available regarding this patient. Last updated 17.[facility] [employer] Social History Tobacco Use Types Packs/Day Years Used Date Smoking Tobacco: Never Assessed Sex and Gender Information Value Date Recorded Sex Assigned at Not on file Gender Identity Not on file Sexual Orientation Not on file Plan of Treatment Not on file
--- OUTSIDE RECORDS SUMMARY | 2024-05-11 10:15 | XMS_ITS | Clinical Summary ---
Author Organization [facility] Address [address] [place] [address] Care Team Providers Care Architectural Draftsman Name Role Phone Unavailable Primary Care Provider Unavailabl e Source Comments [facility],non-owned Affiliates and Associated Physician Practices is amultiple site organization consisting of ambulatory clinics and hospital sitesin [place], [place], [place]. This disclosure is being madepursuant to the Care Everywhere program and may not contain all information available regarding this patient. Last updated 17.[facility] Social History Tobacco Use Types Packs/Day Years [...]
--- OUTSIDE RECORDS SUMMARY | 2024-05-11 10:15 | XMS_ITS | Clinical Summary ---
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
--- OUTSIDE RECORDS SUMMARY | 2024-05-11 10:15 | XMS_ITS | Patient Health Summary ---
Author Organization [facility] Address [address] [place] [place] [address] Care Team Providers Care Biostatistician Name Role Phone Unavailable Primary Care Provider Unavailabl e Note from [facility],non-owned Affiliates and Associated Physician Practices is amultiple site organization consisting of ambulatory clinics and hospital sitesin [place], [place], [place] and [place]. This disclosure is being madepursuant to the Care Everywhere program and may not contain all information available regarding this patient. Last updated 17.[facility] Social History Tobacco Use Types Packs/Day Years Used Date Smoking Tobacco: Never Assessed Sex and Gender Information Value Date Recorded Sex Assigned at Not on file Gender Identity Not on file Sexual Orientation Not on file Procedures * DERMATOPATHOLOGY(Performed 07/30/2019) Results * DERMATOPATHOLOGY (07/30/2019 12:00 AM CDT) Case Report Dermatopathology Report Case: [id number] Authorizing Provider: Ny Kumar DO Collected: 07/30/2019 12:00 AM Ordering Location: [facility] Derm[facility] Lab Received: 07/30/2019 10:39 [...] The specimen consists of a shave measuring [id number]. Jar 0. 0 4:23 PM CDT DERMATOPATHOLOGY [...] characteristic determined by the Dermatopathology Laboratory at [facility], directed by Dr. Samy Coy. These tests need not be, and therefore are not, approved by the [place] Food and Drug Administration. The tests are used for clinical purposes. Billing Codes Specimen Charges Stain Charges 66936 1 75954 1 0 4:23 PM CDT DERMATOPATHOLOGY LABORATORY Embedded Images 0 4:23 PM CDT DERMATOPATHOLOGY LABORATORY Pathology/Cytolog y TISSUE SPECIMEN FROM SKIN / Unknown 07/30/2019 07/30/2019 10:39 AM CDT Ny Kumar DO LAB - PATHOLOGY/C YTOLOGY ORDERABLES DERMATOPATHOLOGY LABORATORY [facility] - Department of Dermatology [address] [place] [address], 5th Floor Lab [address] [place], [place] [id number] [place] [address]
--- OUTSIDE RECORDS SUMMARY | 2024-05-11 10:15 | XMS_ITS | Encounter Summary ---
Author Organization [facility] Address 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
--- OUTSIDE RECORDS SUMMARY | 2024-05-11 10:15 | XMS_ITS | Encounter Summary ---
Author Organization [facility] Address 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
--- OUTSIDE RECORDS SUMMARY | 2024-05-11 10:15 | XMS_ITS | Encounter Summary ---
Author Organization [facility] Address 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
--- OUTSIDE RECORDS SUMMARY | 2024-05-11 10:15 | XMS_ITS | Continuity of Care Document ---
Author Organization [facility] Address [address] [place] [address] Phone Care Team Providers Care Lifestyle Consultant Name Role Phone [facility] Un[facility] Unavail able Procedures Procedure Date Vision Svcs Frames Purchases SV Poly Carb Sph [place] To +/- 4 009 Tax - Medical Eye Exam, New Patient Refraction Advance Directives Directive Yes / No Effective Date File Name No Information Encounters Encounter Description Practice Location Reason(s) For Visit Diagnoses Date Provider Providers Copied on Encounter [facility], [address] [place] [address] [address], [place], [place], [id number], [place] tel:[phone] [facility] No Information 3200 [address] Optical [facility]. [address] [facility], [address], [place], [place], [id number], [place]. tel:[phone] Referring Provider: Tiago roque, [address] [place] [address] [address], [place], [address]. tel:[phone] [facility], [address] [place] [address] [address], [place], [place], [id number], [place] tel:[phone] [facility] No Information [address] Ordoñez. [address] [place] [address], [place], [address], [place]. tel:[phone] Family History Family Member Type Diagnosis Age At Onset No Information Payers Payer name Insurance type Covered libertarian ID Authoriza tion(s) No Information Social History [...]
--- OUTSIDE RECORDS SUMMARY | 2024-05-11 10:15 | XMS_ITS | Encounter Summary ---
Author Organization [facility] Address 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
--- OUTSIDE RECORDS SUMMARY | 2024-05-11 10:15 | XMS_ITS | Encounter Summary ---
Author Organization [facility] Address 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
--- OUTSIDE RECORDS SUMMARY | 2024-05-11 10:15 | XMS_ITS | Clinical Summary ---
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
== END 2024-05-11 10:03 | disposition home or self-care (01) ==
LOC: ANHCARD 10:03
PROVIDERS: PCP Internal Medicine; Visit Provider Internal Medicine
DX: R94.31 Abnormal electrocardiogram [ECG] [EKG] (principal)
CPT/HCPCS: 93351

== ENCOUNTER 2024-05-25 00:07 | Day surgery (SDC) | payer BC, SELFPAY ==
[2024-05-07 08:46] VITALS: BMI 31.6
--- NOTE | 2024-05-07 08:55 | PC.NURSE ---
Report to the Outpatient Waiting Room, entrance under the green pavilion located off [facility], at time __1000am on date _05.25.24 . Planned Procedure Time: ___1200pm .? Time changes happen often and if your time is changed the preop area will call you the afternoon before. - You and your visitor will be asked to self-screen and do not enter if you have any COVID symptoms. Please call surgeon if you need to reschedule. - A mask is optional within the hospital at this time. Patients may have clear liquids (water, carbonated beverages, clear teas, apple juice) until 3 hours prior to surgery with a maximum of 20 ounces. - No food from midnight until time of surgery and no smoking, or chewing tobacco (or any form of nicotine). No chewing gum, candy or mints. (0900am) Take only the following medications with a SIP of water on the morning of surgery: ____None ____ DO NOT STOP ANY OF YOUR OTHER PRESCRIPTION MEDICATIONS PRIOR TO SURGERY EXCEPT THE FOLLOWING Hold all vitamins and supplements for 3 days per anesthesiologist. Medications to discontinue per physician None Date to take last dose____None Please no make-up, nail montenegrin, hairspray, perfume, deodorant, or body powder the day of surgery.? No jewelry (including any body piercings) or valuables the day of surgery, leave them at home.? Please take a shower or bath the night before, or the morning of, surgery with an antibacterial soap.? Wear comfortable, loose fitting clothing.? - Jewelry must be removed prior to entering the operating room.? Rings and piercings that are not removed may be cut off. - The hospital will not accept responsibility for valuables.? - Please leave all valuables, including medications, at home the day of surgery. If you are going home after surgery, a licensed front end loader driver must drive you home.? - NO public transportation without another adult if you receive anesthesia. - We recommend that an adult stay with you for 24 hours following discharge. - We also recommend that you do not drive, make important decision, drink alcoholic beverages, or take any drugs that were not prescribed by your health care provider for at least 24 hours after your discharge time. Follow any additional instructions given to you from your surgeon. Telephone instructions given to ___Patient and asked if any additional questions and then verbalized understanding. Patient advised to call surgeon office or pre surgery nurse liaison [phone] if any additional questions.
[2024-05-07 11:24] VITALS: BP 147/85; PULSE 56; RESP 16; TEMP 36.6; O2SAT 100
[2024-05-25] VITALS (9 sets, daily range): BP systolic 119–149; BP diastolic 77–92; PULSE 67–686; RESP 12–16; TEMP 36.1–36.6; O2SAT 97–99; BMI 31.6
--- NOTE | ~2024-05-25 | XR_ITS ---
INTRAOPERATIVE FLUOROSCOPY: CLINICAL HISTORY: 54 years old Male; RIGHT L5-S1 MICRODISCECTOMY PROCEDURE COMMENTS: Limited intraoperative fluoroscopy of the lumbar spine was performed. CUMULATIVE DOSE: 4.65 mGy FLUOROSCOPY TIME: 4.5 seconds FINDINGS/IMPRESSION: Please refer to operative note for further details. Reviewed, dictated and finalized at location A. [employer]ING [employer]EM[employer]
--- OUTSIDE RECORDS SUMMARY | 2024-05-25 00:09 | XMS_ITS | Encounter Summary ---
Author Organization [facility] Address 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
--- OUTSIDE RECORDS SUMMARY | 2024-05-25 00:09 | XMS_ITS | Encounter Summary ---
Author Organization [facility] Address 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
--- OUTSIDE RECORDS SUMMARY | 2024-05-25 00:09 | XMS_ITS | Referral Summary ---
Author Organization [facility] Address [address] [place] [address] Care Team Providers Care Stockbroking Dealer Name Role Phone Unavailable Primary Care Provider Unavailabl e Source Comments [facility],non-owned Affiliates and Associated Physician Practices is amultiple site organization consisting of ambulatory clinics and hospital sitesin [place], [place], [place]. This disclosure is being madepursuant to the Care Everywhere program and may not contain all information available regarding this patient. Last updated 17.[facility] [employer] Social History Tobacco Use Types Packs/Day Years Used Date Smoking Tobacco: Never Assessed Sex and Gender Information Value Date Recorded Sex Assigned at Not on file Gender Identity Not on file Sexual Orientation Not on file Plan of Treatment Not on file
--- OUTSIDE RECORDS SUMMARY | 2024-05-25 00:09 | XMS_ITS | Encounter Summary ---
Author Organization [facility] Address 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
--- OUTSIDE RECORDS SUMMARY | 2024-05-25 00:09 | XMS_ITS | Clinical Summary ---
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
--- OUTSIDE RECORDS SUMMARY | 2024-05-25 00:09 | XMS_ITS | Encounter Summary ---
Author Organization [facility] Address 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
--- OUTSIDE RECORDS SUMMARY | 2024-05-25 00:09 | XMS_ITS | Encounter Summary ---
Author Organization [facility] Address 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
--- OUTSIDE RECORDS SUMMARY | 2024-05-25 00:09 | XMS_ITS | Encounter Summary ---
Author Organization [facility] Address 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
--- OUTSIDE RECORDS SUMMARY | 2024-05-25 00:09 | XMS_ITS | Patient Health Summary ---
Author Organization [facility] Address [address] [place] [address] Care Team Providers Care Duty Engineer Name Role Phone Unavailable Primary Care Provider Unavailabl e Note from [facility],non-owned Affiliates and Associated Physician Practices is amultiple site organization consisting of ambulatory clinics and hospital sitesin [place], [place], [place] and [place]. This disclosure is being madepursuant to the Care Everywhere program and may not contain all information available regarding this patient. Last updated 17.[facility] Social History Tobacco Use Types Packs/Day Years Used Date Smoking Tobacco: Never Assessed Sex and Gender Information Value Date Recorded Sex Assigned at Not on file Gender Identity Not on file Sexual Orientation Not on file Procedures * DERMATOPATHOLOGY(Performed 07/30/2019) Results * DERMATOPATHOLOGY (07/30/2019 12:00 AM CDT) Case Report Dermatopathology Report Case: [id number] Authorizing Provider: Ny Kumar DO Collected: 07/30/2019 12:00 AM Ordering Location: [facility] Received: 07/30/2019 10:39 AM Pathologist: [...] The specimen consists of a shave measuring [id number]. Jar 0. 0 4:23 PM CDT DERMATOPATHOLOGY [...] characteristic determined by the Dermatopathology Laboratory at [facility], directed by Dr. Samy Coy. These tests need not be, and therefore are not, approved by the [place] Food and Drug Administration. The tests are used for clinical purposes. Billing Codes Specimen Charges Stain Charges 24207 1 06618 1 0 4:23 PM CDT DERMATOPATHOLOGY LABORATORY Embedded Images 0 4:23 PM CDT DERMATOPATHOLOGY LABORATORY Pathology/Cytolog y TISSUE SPECIMEN FROM SKIN / Unknown 07/30/2019 07/30/2019 10:39 AM CDT Ny Kumar DO LAB - PATHOLOGY/C YTOLOGY ORDERABLES DERMATOPATHOLOGY LABORATORY [facility] - Department of Dermatology [address] [place] [address], 5th Floor Lab [address] [place], [place] [id number] [place] [address]
--- OUTSIDE RECORDS SUMMARY | 2024-05-25 00:09 | XMS_ITS | Encounter Summary ---
Author Organization [facility] Address [address] [facility] [place] [address] Care Team Providers Care Printed Circuit Designer Name Role Phone Unavailable Primary Care Provider Unavailabl e Encounter Details Date Type Department Care Team (Late st Contact Info) Description 07/30/2019 Lab Requisition [facility] [address] [facility], [place] [id number] Ny Kumar DO [address] [facility] [address] [place] [address] Social History Tobacco Use Types Packs/Day Years [...] AM CDT) Case Report Dermatopathology Report Case: [id number] Authorizing Provider: Ny Kumar DO Collected: 07/30/2019 12:00 AM Ordering Location: [facility] Received: 07/30/2019 10:39 AM Pathologist: [...] The specimen consists of a shave measuring [id number]. Jar 0. 0 4:23 PM CDT DERMATOPATHOLOGY [...] characteristic determined by the Dermatopathology Laboratory at [facility], directed by Dr. Samy Coy. These tests need not be, and therefore are not, approved by the [place] Food and Drug Administration. The tests are used for clinical purposes. Billing Codes Specimen Charges Stain Charges 04046 1 [id number] 1 0 4:23 PM CDT DERMATOPATHOLOGY LABORATORY Embedded Images 0 4:23 PM CDT DERMATOPATHOLOGY LABORATORY Pathology/Cytolog y TISSUE SPECIMEN FROM SKIN / Unknown 07/30/2019 07/30/2019 10:39 AM CDT Ny Kumar DO LAB - PATHOLOGY/C YTOLOGY ORDERABLES DERMATOPATHOLOGY LABORATORY [facility] - Department of Dermatology [address] [place] [address], [address] [place] [address], [facility] [phone] documented in this encounter Visit Diagnoses Not on filedocumented in this encounter
--- OUTSIDE RECORDS SUMMARY | 2024-05-25 00:09 | XMS_ITS | Clinical Summary ---
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
--- OUTSIDE RECORDS SUMMARY | 2024-05-25 00:09 | XMS_ITS | Encounter Summary ---
Author Organization [facility] Address 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
--- OUTSIDE RECORDS SUMMARY | 2024-05-25 00:09 | XMS_ITS | Clinical Summary ---
Author Organization [facility] Address [address] [place] [address] Care Team Providers Care Airfield Defence Guard Name Role Phone Unavailable Primary Care Provider Unavailabl e Source Comments [facility],non-owned Affiliates and Associated Physician Practices is amultiple site organization consisting of ambulatory clinics and hospital sitesin [place], [place], [place] and [place]. This disclosure is being madepursuant to the Care Everywhere program and may not contain all information available regarding this patient. Last updated 17.[facility] Social History Tobacco Use Types Packs/Day Years [...]
[2024-05-25] MEDS: LACTATED RINGERS 1,000 ML 30 ML IV CONT ×2 (09:45→14:28)
--- NOTE | 2024-05-25 12:08 | WPDANESEPPF ---
Anes - Initial Pre Proc Eval Procedure: Operation Date: 05/25/24 11:00 Proposed Procedures p Right L5- S1 Microdiscectomy - Hugh Landers MD Date/Time: 05/25/24 12:08 Surgeon: Hugh Landers MD Pre Op Diagnosis: Lumbar Disc herniation Patient Data Age: 54 Gender: M Height: 1.78 m Weight: 99.9 kg Last Vital Signs Temp 36.1 C L 05/25/24 09:30 Pulse 68 05/25/24 09:30 Resp 14 05/25/24 09:30 BP 133/80 05/25/24 09:30 Pulse Ox 99 05/25/24 09:30 O2 Del Method Room Air 05/25/24 09:30 Allergies Allergy/AdvReac Type Severity Reaction Status Date / Time No Known Allergies Allergy Verified 05/25/24 09:59 Home Medications ?Medication ?Instructions ?Recorded ?Confirmed ?Type No Home Medications 05/07/24 05/07/24 History Patient hx anesthesia problems: none Family hx anesthesia problems: none Results Review: All pre-operative results and documents have been reviewed as part of the pre-operative evaluation. ON LICENSE OF [facility] Past Medical History Medical History Lumbar disc herniation History of intestine removal Family History Family History Father Patient's father is in good health Sibling Patient's brother is in good health Mother Patient's mother is Social History Social History (Updated 05/25/24 @ 12:15 by Enrique Reeves DO) Smoking packs per day: 1 Smoking cigarettes per day: 20.0 Years smoked: 10 Smoking pack-years: 10.00 Smoking status: Former smoker Second hand tobacco smoke exposure: No Smoking end date: 03/28/94 Additional smoking assessment comments: No nicotine Alcohol intake: current Drinks per week: 3 Alcohol use details: 2/day Substance use: never Lack of Transportation: No Lack of Food: Never True Current Housing: I Have Housing Concerned About Future Housing: No Difficulty Paying Gas/Electric Bills: No Difficulty Paying for Meds: No Currently Unemployed: No Education: Decline to Answer Difficulty w/ Childcare or Family Care: No Living arrangements: with family Additional living arrangements comments: Spiritual care concerns: No Anes - Eval Final PreProcedure Day of Procedure 05/25/24 12:08 Patient weight: obese Heart: regular rate and rhythm Lungs: clear to auscultation Airway: Mallampati scale class II Neurological: alert and oriented Last oral intake: >/= 8 hours ASA classification: III Emergent: no Anesthetic plan: proceed Anesthesia type and monitoring: general ETT and standard monitoring Results Review: All pre-operative results and documents have been reviewed as part of the pre-operative evaluation. Informed Consent: The patient's anesthetic plan and its attendant risks and benefits were discussed with the patient/family/POA. Questions were solicited and answers provided to the satisfaction of the patient/family/POA.
--- NOTE | 2024-05-25 12:17 | P.HP_ITS ---
H&P: HPI History of Present Illness Date/Time: 05/25/24 12:17 Chief Complaint: right sciati pain Narrative: [facility] [address] [place] [id number] Hugh Landers M.D. Neurosurgery Office Visit Signed Patient: Hari Palma MR#: [id number] : 1970 Acct:[id number] Age: 54 Date of Service: 03/16/24 cc: ~ HPI HPI Comments Details: 54 year old male who presents with resolved right sided low back and right posterior thigh and calf pain but persistent numbness and weakness found to have a right L5/S1 disc herniation. He has already tried conservative measures, and had steroid injections which have helped with his pain, however has not resolved weakness in his leg. He explains that he cannot stand on the ball of his right foot. He feels that he hobbles around when he walks. 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 His otherwise healthy without any major medical issues. [facility] Past Medical History Medical History Lumbar disc herniation History of intestine removal Family History Family History Father Patient's father is in good health Sibling Patient's brother is in good health Mother Patient's mother is Social History Social History (Updated 05/25/24 @ 12:15 by Enrique Reeves DO) Smoking packs per day: 1 Smoking cigarettes per day: 20.0 Years smoked: 10 Smoking pack-years: 10.00 Smoking status: Former smoker Second hand tobacco smoke exposure: No Smoking end date: 03/28/94 Additional smoking assessment comments: No nicotine Alcohol intake: current Drinks per week: 3 Alcohol use details: 2/day Substance use: never Lack of Transportation: No Lack of Food: Never True Current Housing: I Have Housing Concerned About Future Housing: No Difficulty Paying Gas/Electric Bills: No Difficulty Paying for Meds: No Currently Unemployed: No Education: Decline to Answer Difficulty w/ Childcare or Family Care: No Living arrangements: with family Additional living arrangements comments: Spiritual care concerns: No Meds Home Medications and Allergies Home Medications ?Medication ?Instructions ?Recorded ?Confirmed ?Type No Home Medications 05/07/24 05/07/24 History Allergies Allergy/AdvReac Type Severity Reaction Status Date / Time No Known Allergies Allergy Verified 05/25/24 09:59 Vital Signs Vital Signs - 24 hr 05/25/24 09:30 Temperature 96.9 F L Pulse Rate 68 Respiratory Rate 14 Blood Pressure 133/80 Pulse Oximetry 99 Oxygen Delivery Room Air Exam Narrative: right plantar flexion weakness 4/5 otherwise no focal neuro deficit. Assessment and Plan Assessment and plan (1) Lumbar disc herniation: Code(s): M51.26 - Other intervertebral disc displacement, lumbar region Status: Acute Assessment and Plan: 54 year old gentleman here for a right L5/S1 microdiscectomy for removal of large disc herniation.
--- NOTE | 2024-05-25 12:19 | WPDHPUPDATE1 ---
History and Physical Update Update Date/Time: 05/25/24 12:19 History and Physical has been reviewed, including an updated exam of the patient. There are NO changes in the patient's condition. Risks, benefits, and alternatives have been discussed and questions answered. Patient agrees to proceed with procedure.
[2024-05-25] MEDS: ceFAZolin 2 GM/D5W 50 ML 2 GM/50 ML BAG IVPB (13:00)
[2024-05-25] MEDS: BUPIVACAINE/EPINEPHRINE 0.5% 50 ML VIAL 10 ML INFILTRATE (13:02)
--- NOTE | 2024-05-25 14:30 | W.PM.PROC2 ---
Procedure Note - Detailed Date of Procedure 05/25/24 Pre-op Diagnosis Lumbar Disc herniation Post-op Diagnosis Same Procedure Performed Right L5-S1 microdiskectomy Use of operating microscope for microdissection Surgeon Hugh Landers MD Anesthesia General Indications Right L5-S1 disc herniation Findings Large protuberance and subligamentous disc herniation Description of Procedure Once the patient was intubated the patient was positioned prone on the Drake frame. All bony prominences were padded. Lateral fluoroscopy was brought in to S1 level. The skin incision was marked. Patient was then prepped and draped in the usual sterile fashion. I used Bovie electrocautery to move the muscle off the spinous process and lamina. Once this was complete the [place] retractor was placed. Lateral fluoroscopy was again plate brought in and a curette was placed underneath the lamina of L5. This confirmed the correct level. At this point I again obtained hemostasis and additional exposure to identify the L5 lamina the L5-S1 facet joint. I then used a drill to perform a medial facetectomy and hemilaminectomy at L5-S1 on the right side. Once this was complete I used an upgoing curette to remove the underlying ligament addition to Kerr[place] is. I was able to visualize the traversing nerve root which was bowed upward by a large disc protrusion. Carefully retracted the nerve root to identify a large disc herniation. This was entered with an 11 blade. I then used a variety of curettes as well as pituitary rongeur is to remove disc. It was very protuberant and I used a down pushing curette to reach medially and inferiorly to press down onto the disc into the disc space which was further removed pituitary Camejo. There was significant venous bleeding over the disc which had to be hemostased FloSeal bipolar electrocautery. At this point I used a nerve hook to slide underneath the nerve root which was no longer being compressed by the disc herniation. There was still additional disc bulge medially which I was unable to fully decompress with a down pushing curette without causing additional bleeding. Ultimately the nerve felt decompressed so I decided rather than continue to cause additional bleeding I decided to hemostasis irrigate and close. The wound was closed in layers ending with Steri-Strips on the skin. There were no complications with surgery. Estimated Blood Loss 25 Complications No immediate complications Condition Stable
[2024-05-25] MEDS: oxyCODONE HCL (*CRX) 5 MG TAB IR PO (15:49)
== END 2024-05-25 16:30 | disposition home or self-care (01) ==
PROVIDERS: PCP Internal Medicine; Visit Provider Neurological Surgery
PROC: (CPT 63030; principal; 2024-05-25 11:00)
DX: M51.26 Other intervertebral disc displacement, lumbar region (principal); Z87.891 Personal history of nicotine dependence
CPT/HCPCS: 63030; 99199; A9270; J0690; J1100; J2003; J2250; J2405; J2704; J3010; J7120